=== PATIENT | male | born 1955 | race Caucasian/White ===

== ENCOUNTER 2019-06-19 00:36 | Day surgery (SDC) | payer BC, SELFPAY ==
[2019-06-05 14:37] VITALS: BMI 27.3
[2019-06-19] VITALS (8 sets, daily range): BP systolic 92–136; BP diastolic 67–92; PULSE 64–86; RESP 10–18; TEMP 36.1–36.3; O2SAT 98–100
[2019-06-19] MEDS: LACTATED RINGERS 1,000 ML 30 ML IV CONT (06:05)
--- NOTE | 2019-06-19 06:49 | WPDANESEPPF ---
Anes - Initial Pre Proc Eval Procedure: Operation Date: 06/19/19 07:30 Proposed Procedures p Left Knee Arthroscopy, Partial Medial Meniscectomy - Shai Altamirano MD Date/Time: 06/19/19 06:49 Surgeon: Shai Altamirano MD Pre Op Diagnosis: Left Knee Pain Patient Data Age: 64 Gender: M Height: 1.73 m Weight: 81.65 kg Allergies Allergy/AdvReac Type Severity Reaction Status Date / Time No Known Allergies Allergy Verified 06/05/19 14:38 Home Medications Medication Instructions Recorded Confirmed Type omeprazole 20 mg PO QPM 06/05/19 06/05/19 History Patient hx anesthesia problems: none Family hx anesthesia problems: none PMFSH Past Medical History Medical History (Updated 06/18/19 @ 09:20 by Nayan Lynn DO) GERD (gastroesophageal reflux disease) Surgical History Surgical History (Updated 06/18/19 @ 09:20 by Nayan Lynn DO) History of cholecystectomy History of hernia repair x2 Social History Social History (Updated 06/19/19 @ 06:49 by Nayan Lynn DO) Social History: 0.5 PPD x 40 years Anes - Eval Final PreProcedure Day of Procedure 06/19/19 06:49 Patient weight: overweight Heart: regular rate and rhythm Lungs: clear to auscultation and normal air movement Airway: Mallampati scale class II Neurological: alert and oriented Last oral intake: >/= 8 hours ASA classification: III Emergent: no Anesthetic plan: proceed Anesthesia type and monitoring: general LMA and standard monitoring Informed Consent: The patient's anesthetic plan and its attendant risks and benefits were discussed with the patient/family/POA. Questions were solicited and answers provided to the satisfaction of the patient/family/POA.
--- NOTE | 2019-06-19 07:36 | WPDHPUPDATE1 ---
History and Physical Update Update Date/Time: 06/19/19 07:36 History and Physical has been reviewed, including an updated exam of the patient. There are NO changes in the patient's condition. Risks, benefits, and alternatives have been discussed and questions answered. Patient agrees to proceed with procedure.
[2019-06-19] MEDS: ceFAZolin 2 GM/D5W 50 ML 2 GM/50 ML BAG IVPB (07:43)
[2019-06-19] MEDS: TRIAMCINOLONE ACET INJ 40 MG/ML VIAL IM (08:11)
[2019-06-19] MEDS: BUPIVACAINE/EPINEPHRINE 0.25% 50 ML VIAL 30 ML INFILTRATE (08:12)
[2019-06-19] MEDS: KETOROLAC 30 MG/ML VIAL (*BKC) IV PUSH (08:31)
--- NOTE | 2019-06-19 08:51 | PM.PROC ---
Procedure Note - Detailed Date of procedure: 06/19/19 Pre-op diagnosis: Left Knee Pain Left knee medial meniscus tear Procedure performed: Mr. Dede Coleman probably identified in the preoperative holding area and signed the consent was reviewed and all questions were thoroughly answered my initials were clearly placed on the anterior aspect of the operative left knee. He was taken to the operating room was placed in the supine position a general anesthetic was administered preoperative antibiotics were given. The left knee was elevated prepped and draped in the sterile circumferential manner exsanguinated and the tourniquet was inflated. A brief pause was held identifying this as the correct patient extremity and procedure to be performed carried out. All the room agreement. All necessary implants were in the room immediately available. A preoperative spinal needle counts were verified to be correct. A standard inferior lateral arthroscopic portal was established and utilizing a spinal needle for localization and inferior medial arthroscopic portal was established. Diagnostic arthroscopy was performed with following findings: 1. There was a large bucket-handle tear extending from the posterior horn all the way around to the anterior horn of the medial meniscus. Two there was a large medial patellofemoral plica. Three there was grade 3 degenerative changes over the weight-bearing portion of the medial femoral condyle. Shaver was introduced through the medial portal and debridement of the bucket-handle tear was done down to good stable meniscal tissue. This required approximately 75% excision of the posterior horn and the midbody of the medial meniscus. An ArthroCare 1 cautery device was utilized to smooth off the edges of the tear. The shaver was then introduced to the distal aspect of the medial femoral condyle and utilizing chondroplasty technique the loose unstable cartilage was debrided down to good stable rim of articular cartilage. The leg was placed in a figure 4 position and the wench lateral compartment was inspected and found to be pristine. The leg was placed in full extended position and a very large medial patellofemoral plica was noted to be impinging in the medial facet. Utilizing the shaver this was debrided down to the medial capsule. The medial lateral as well as the superior patellar pouch was inspected and no further pathology or loose bodies were encountered. The arthroscope and shaver were removed. The knee was drained. The arthroscopic portals were closed with 3 0 Monocryl in the subcuticular tissues and Dermabond skin. The knee joint proper was injected with 3 cc of 0.25% bupivacaine with epinephrine 40 mg of Kenalog for postoperative intra-articular bleeding and pain control purposes. Sterile waterproof Band-Aids were applied to the incision. The leg was wrapped the toe tips and mid thigh with long Pieter bandage pain the tourniquet was deflated and the toes pinked up immediately were noted to have good brisk capillary refill to the toe tips and helmets. Anesthesia was reversed. Patient was extubated and taken to postop recovery in stable extubated state. Number complications were noted on postop sponge and needle counts were verified to be correct. Description of procedure: pMMx chondroplasty plicectomy Anesthesia: GETA Surgeon: Shai Altamirano MD Estimated blood loss (mL): 5 Tourniquet time (min): 30 Drains: No Packing: No Pathology: none sent Complications: No immediate complications Condition: stable Disposition: PACU Findings: Medial meniscus tear (Bucket handle) Medial PF plica Chondromalacia Type 3 to [facility] – [place], [place]
--- NOTE | 2019-06-19 10:06 | SUR.PREOP ---
0700: PT HAS CRUTCHES AND DENIES NEED FOR TRAINING/TEACHING
--- NOTE | 2019-06-19 10:50 | SUR.PHASEII ---
1040: Patient and spouse decided they wanted a refresher on crutch training so RN gave hands on training and sent printed instructions home with patient as well.
== END 2019-06-19 10:47 | disposition home or self-care (01) ==
PROVIDERS: PCP Family Medicine; Visit Provider Orthopaedic Surgery
PROC: (CPT 29870; principal; 2019-06-19 07:30)
DX: M23.332 Other meniscus derangements, other medial meniscus, left knee (principal); K21.9 Gastro-esophageal reflux disease without esophagitis; F17.210 Nicotine dependence, cigarettes, uncomplicated
CPT/HCPCS: 29881; J0690; J1100; J1885; J2250; J2405; J2704; J3010; J3301; J7120